=== PATIENT | male | born 1950 | race Caucasian/White ===

== ENCOUNTER → 2017-06-18 | Outpatient (CLI) | payer MEDICARE, OTHER ==
[~2017-06-18] MED LIST: BARIUM SUSPENSION 2.1% (VANILLA SILQ) 450 ML PO ONE; CATHETER FLUSH 10 ML SYR IV PRN; IOHEXOL 350 MG/ML 100 ML (OMNIPAQUE 350) VIAL IV ONE; NS 100 ML (IVPB) BAG IV ONE
--- NOTE | 2017-06-18 13:09 | Diagnostic Imaging Report ---
PROCEDURE: CT abdomen and pelvis with contrast. TECHNIQUE: Multiple contiguous axial images were obtained through the abdomen and pelvis after administration of intravenous contrast. INDICATION: Prostate cancer. FINDINGS: The lung bases are clear. There is a large fixed hiatal hernia without evidence of incarceration. There is fatty change of the liver without hepatomegaly. The gallbladder and bile ducts are normal. The pancreas and spleen are normal. The adrenal glands are normal. The kidneys show no evidence of obstruction. There are bilateral renal cysts present, the largest on the right measuring approximally 3 x 4 cm which is lobulated and very likely represents an infundibular stenosis with subsequent calyceal dilatation in the lower pole of the right kidney. There are no calculi associated with this. There is normal enhancement of the abdominal organs and vessels. Aorta shows minimal atherosclerotic disease without aneurysm. There is no para-aortic adenopathy of pathologic size. Oral contrast in the stomach and small bowel appear normal. There is a moderate amount of stool present throughout the colon from the cecum to the rectum consistent with some degree of constipation. There is diverticulosis of the sigmoid colon without evidence of diverticulitis. The bladder is not distended. The prostate is mildly enlarged with prominent median lobe. The seminal vesicles appear normal. No pelvic adenopathy is demonstrated. Bone windows show no blastic or lytic lesions. Degenerative changes noted along the lumbar spine. IMPRESSION: 1. No findings are seen to suggest metastatic prostate disease. 2. Large fixed hiatal hernia. 3. Hepatic steatosis. 4. Atherosclerotic aorta without aneurysm. 5. 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 6. Moderate stool burden consistent with constipation. Dictated by: Dictated on workstation # [id number]
--- NOTE | 2017-06-18 15:49 | Diagnostic Imaging Report ---
INDICATION: Newly diagnosed prostate carcinoma. TECHNIQUE: The patient was administered 26.4 mCi technetium 99m MDP. Anterior and posterior whole-body planar images are obtained. CORRELATION STUDY: None FINDINGS: Mild scattered areas of uptake about the spine most pronounced in the cervical spine favoring degenerative activity. The ribs and sternum appear unremarkable. Shoulder girdles with scattered areas of uptake favoring degenerative activity as well. Bony calvarium unremarkable. The pelvis as well as lower extremities are unremarkable. Exception is some degenerative type uptake suggested about the left knee and likely proximal right tibia. However, this is slightly atypical. There is also uptake about the ankles and feet right slightly greater than left. Physiologic uptake about the kidneys with excretion into the urinary bladder. IMPRESSION: 1. Multifocal areas of uptake favoring likely degenerative activity including the spine and most pronounced cervical spine as well as bilateral shoulder girdles and feet and ankles as well as knees. 2. Slight irregular uptake suggested about the proximal tibia may reflect additional degenerative activity but is somewhat atypical for degenerative activity. Correlation for symptoms in this area. 3. Otherwise, no findings to suggest presence of osseous metastatic disease at baseline bone scan. Dictated by: Dictated on workstation # [id number]
== END ==
LOC: CARD 11:46
PROVIDERS: ATTEND Urology
DX: C61 Malignant neoplasm of prostate (principal)
CPT/HCPCS: 74177; 78306

== ENCOUNTER 2017-11-18 08:58 | Outpatient (CLI) | payer MEDICARE, OTHER ==
[~2017-11-18] VITALS: Ht 167.6 cm; Wt 97.1 kg
[2017-11-18 09:13] VITALS: BP 134/90
[2017-11-18] MEDS ORDERED: PRAV40TA2 PO (10:10)
[2017-11-18] MEDS ORDERED: OMEP20TA7 PO (10:10)
[2017-11-18] MEDS ORDERED: LEVO137T2 PO (10:10)
[2017-11-18] MEDS ORDERED: NIAC500T24 PO (10:10)
[2017-11-18] MEDS ORDERED: TRAM50TA2 PO (10:10)
[2017-11-18] MEDS ORDERED: FEXO-192 PO (10:10)
[2017-11-18] MEDS ORDERED: LISI1TAB8 PO (10:10)
[2017-11-18] MEDS ORDERED: FAMO20TA3 PO (10:10)
[2017-11-18] MEDS ORDERED: SITA100T12 PO (10:10)
[2017-11-18] MEDS ORDERED: MELO15TA39 PO (10:10)
[2017-11-18] MEDS ORDERED: METF500T5 PO (10:10)
[2017-11-18] MEDS ORDERED: OMEG1CAP58 PO (10:10)
[2017-11-18] MEDS ORDERED: CYCL10TA9 PO (10:10)
[2017-12-03] MEDS ORDERED: HYOS0.1281 PO (16:37)
[2017-12-03] MEDS ORDERED: CIPR-225 PO (16:37)
[2017-12-03] MEDS ORDERED: HYDR-3870 PO (16:37)
[2017-12-03] MEDS ORDERED: PHEN-640 PO (16:37)
== END 2017-11-18 09:30 | disposition home or self-care (01) ==
LOC: PREOP 08:58
PROVIDERS: ATTEND Urology
DX: Z01.818 Encounter for other preprocedural examination (principal); C61 Malignant neoplasm of prostate
CPT/HCPCS: 87081

== ENCOUNTER 2017-12-30 09:55 | Outpatient (RCR) | payer MEDICARE, OTHER ==
[~2017-12-30 09:55] MED LIST changes: -BARIUM SUSPENSION 2.1% (VANILLA SILQ) 450 ML PO ONE; -CATHETER FLUSH 10 ML SYR IV PRN; +CIPR-225 PO; +CYCL10TA9 PO; +FAMO20TA3 PO; +FEXO-192 PO; +HYDR-3870 PO; +HYOS0.1281 PO; -IOHEXOL 350 MG/ML 100 ML (OMNIPAQUE 350) VIAL IV ONE; +LEVO137T2 PO; +LISI1TAB8 PO; +MELO15TA39 PO; +METF500T5 PO; +NIAC500T24 PO; -NS 100 ML (IVPB) BAG IV ONE; +OMEG1CAP58 PO; +OMEP20TA7 PO; +PHEN-640 PO; +PRAV40TA2 PO; +SITA100T12 PO; +TRAM50TA2 PO
== END 2018-01-03 | disposition home or self-care (01) ==
LOC: ONC 09:55
PROVIDERS: ATTEND Radiology Radiation Oncology
DX: Z51.0 Encounter for antineoplastic radiation therapy (principal); C61 Malignant neoplasm of prostate
CPT/HCPCS: 36415; 76873; 77290; 77331; 84153

== ENCOUNTER 2018-03-03 09:22 | Outpatient (RCR) | payer MEDICARE, OTHER ==
[~2018-03-03 09:22] MED LIST changes: +METF-397 PO; -METF500T5 PO
== END 2018-04-17 | disposition home or self-care (01) ==
LOC: ONC 09:22
PROVIDERS: ATTEND Radiology Radiation Oncology
DX: Z51.0 Encounter for antineoplastic radiation therapy (principal); C61 Malignant neoplasm of prostate
CPT/HCPCS: 77295; 77300; 77301; 77334; 77336; 77338; 77385

== ENCOUNTER → 2019-03-16 | Outpatient (CLI) | payer MEDICARE, OTHER ==
[~2019-03-16] MED LIST changes: -FEXO-192 PO; +FEXO-222 PO
--- NOTE | 2019-03-16 12:44 | Diagnostic Imaging Report ---
Paranasal sinuses at 10:59 a.m. INDICATION: Headache Three views were obtained. COMPARISON: There are no prior studies available for comparison. FINDINGS: The sinuses are generally clear and well aerated. There is no mucosal thickening or fluid layering to suggest active sinusitis. The osseous structures are intact. IMPRESSION: 1. There is no evidence for active sinus disease. 2. If clinical concern regarding an underlying abnormality persists, then CT of the sinuses should be considered for further study. Dictated by: Dictated on workstation # [id number]
== END ==
LOC: RAD 10:30
DX: J34.89 Other specified disorders of nose and nasal sinuses (principal); R51 Headache
CPT/HCPCS: 70220

== ENCOUNTER → 2022-06-08 | Outpatient (CLI) | payer MEDICARE, OTHER ==
[~2022-06-08] MED LIST changes: +CYCL10TA25 PO; -CYCL10TA9 PO; +LISI1TAB46 PO; -LISI1TAB8 PO; +OMEP20TA56 PO; -OMEP20TA7 PO; -TRAM50TA2 PO; +TRM50T PO
--- NOTE | 2022-06-08 13:27 | Diagnostic Imaging Report ---
EXAMINATION: Chest and left ribs three views. HISTORY: Chest pain. COMPARISON: None available. FINDINGS: There is a large hiatal hernia. Left hemidiaphragm is elevated. There is volume loss in left hemithorax. No edema or pneumonia. No pleural effusion or pneumothorax. No displaced rib fractures seen. IMPRESSION: 1. No displaced rib fracture seen. Dictated by: Dictated on workstation # [id number]
[2022-06-08 13:43] LABS: CREATINE KINASE MB 2.8 NG/ML (<6.6)
== END ==
LOC: RAD 12:40
PROVIDERS: ATTEND Nurse Practitioner Family
DX: I10 Essential (primary) hypertension (principal); M62.838 Other muscle spasm; R07.89 Other chest pain; E66.8 Other obesity; E03.9 Hypothyroidism, unspecified; E78.49 Other hyperlipidemia; E11.9 Type 2 diabetes mellitus without complications
CPT/HCPCS: 36415; 71101; 82553; 83874; 84484

== ENCOUNTER 2022-06-30 05:33 | Outpatient (CLI) | payer MEDICARE ==
[~2022-06-30] VITALS: Ht 170.2 cm; Wt 106.3 kg
[2022-07-01] MEDS ORDERED: GLIP5TAB13 PO (12:12)
[2022-07-01] MEDS ORDERED: ROSU20TA32 PO (12:12)
== END 2022-07-01 12:14 | disposition home or self-care (01) ==
LOC: PREOP 05:33
PROVIDERS: ATTEND Surgery
DX: Z01.818 Encounter for other preprocedural examination (principal)

== ENCOUNTER 2022-07-06 10:58 | Day surgery (SDC) | payer MEDICARE ==
[~2022-07-06] VITALS: Ht 170 cm; Wt 106.3 kg
[~2022-07-06 10:58] MED LIST changes: +GLIP5TAB13 PO; +ROSU20TA32 PO
[2022-07-06] MEDS ORDERED: LACTATED RINGERS 1,000 ML IV STA (11:01)
[2022-07-06] MEDS ORDERED: HURRICAINE EXT TUBE (BENZOCAINE) XX PRN (11:15)
[2022-07-06 11:20] VITALS: BP 148/99
[2022-07-06] MEDS ORDERED: PROPOFOL INJECTION 50 ML IV ONE (11:40)
--- NOTE | 2022-07-06 11:47 | Progress Note-Pre Operative ---
Pre-Operative Progress Note Date of Available H&P: Jun 23, 2022 Date H&P Reviewed: Jul 06, 2022 Time H&P Reviewed: 11:34 History & Physical: H&P Reviewed, Patient Examed, No changes noted Pre-Operative Diagnosis: Chronic Gastritis CHILANGO STRICKLAND DO Jul 06, 2022 11:47
--- NOTE | 2022-07-06 12:08 | Progress Note-Post Operative ---
Post-Operative Progess Note Surgeon (s)/Regional Operations Director (s) Surgeon CHILANGO STRICKLAND DO Regional Operations Director: none Pre-Operative Diagnosis Chronic Gastritis Post-Operative Diagnosis Gastritis Hiatal Hernia- stomach in chest Procedure & Operative Findings Date of Procedure 07/06/22 Procedure Performed/Findings EGD with bx PROCEDURE NOTE: After informed consent was obtained, the patient was brought to the endoscopy suite, placed in bed in left lateral decubitus position. He was administered IV sedation by the REVENUE ANALYST who then monitored vitals the entire time, heart rate, blood pressure and pulse ox and the scope was inserted down the mouth through the esophagus into the stomach. On the way down, noted some mild esophagitis, took a picture, pushed into the stomach, pushed past the antrum into the duodenum. Duodenum looked good. Pulled back and did a biopsy of antrum, then retroflexed the scope, saw a very large hiatal hernia with possibly the upper third of stomach above diaphragm. Took a picture of this and then pulled the scope into the GE junction, took another picture of the hiatal hernia and then did a biopsy of the GE junction. Pushed the scope back into the stomach, suctioned all the air out of the stomach. At this point pulled the scope up the esophagus and out the mouth. The patient tolerated the procedure, and he recovered in endoscopy suite. Anesthesia Type IV sedation by REVENUE ANALYST Estimated Blood Loss Estimated blood loss (mL): scant Specimens/Packing Specimens Removed antral bx GE jxn CHILANGO Rivera DO Jul 06, 2022 12:08
--- NOTE | 2022-07-06 12:10 | Endoscopy Discharge Instruct ---
Endo Procedure/Findings Findings 1.: Gastritis 2.: Hiatal Hernia Discharge Instructions - Activity: You might feel a little sleepy until tomorrow. This is due to the medicine you received to relax you. Until tomorrow, you should: NOT drive a car, operate machinery or power tools. NOT drink any alcoholic beverages. NOT make any important decisions or sign importortant papers. Do not return to work until tomorrow, unless otherwise instructed. Resume previous activities tomorrow. Diet: Start by taking liquids. If you tolerate liquids, advance to solid food. 1.: EGD in 3 years Notify Physician - If you experience excessive bleeding, unusual abdominal pain, fever, or chest pain, contact your doctor immediately. CHILANGO STRICKLAND DO Jul 06, 2022 12:10
[2022-07-06 12:11] VITALS: BP 117/70
[2022-07-06 12:16] VITALS: BP 106/70
[2022-07-06 12:20] VITALS: BP 106/70
--- NOTE | 2022-07-06 12:38 | Anesthesia-General Post-Op ---
MAC Patient Condition Mental Status/LOC: Same as Preop Cardiovascular: Satisfactory Nausea/Vomiting: Absent Respiratory: Satisfactory Pain: Controlled Complications: Absent Post Op Complications Complications None Follow Up Care/Instructions Patient Instructions None needed. Anesthesiology Discharge Order Discharge Order Patient is doing well, no complaints, stable vital signs, no apparent adverse anesthesia problems. No complications reported per nursing. ELMA HERNANDEZ CRNA Jul 06, 2022 12:38
[2022-07-06 12:45] VITALS: BP 106/70
[2022-07-06] MEDS ORDERED: fentaNYL INJ 100 MCG/2 ML AMP ONE (14:43)
== END 2022-07-06 12:50 | disposition home or self-care (01) ==
LOC: ENDO 10:58
PROVIDERS: ATTEND Surgery
DX: K29.50 Unspecified chronic gastritis without bleeding (principal); K44.9 Diaphragmatic hernia without obstruction or gangrene; K21.00 Gastro-esophageal reflux disease with esophagitis, without bleeding; E66.9 Obesity, unspecified; Z68.36 Body mass index [BMI] 36.0-36.9, adult; Z79.899 Other long term (current) drug therapy

== ENCOUNTER 2022-11-10 09:23 | Outpatient (RCR) | payer MEDICARE | END 2022-11-11 | disposition home or self-care (01) | PROVIDERS: ATTEND Family Medicine | DX: M54.16 Radiculopathy, lumbar region (principal); R26.89 Other abnormalities of gait and mobility; I10 Essential (primary) hypertension ==

== ENCOUNTER 2022-12-10 10:33 | Outpatient (RCR) | payer MEDICARE | END 2022-12-10 11:30 | disposition home or self-care (01) | PROVIDERS: ATTEND Family Medicine | DX: M54.16 Radiculopathy, lumbar region (principal); R26.89 Other abnormalities of gait and mobility ==

== ENCOUNTER → 2023-04-13 | Outpatient (RCR) | payer MEDICARE ==
[~2023-04-13] MED LIST changes: +FAMO-356 PO; -FAMO20TA3 PO; -GLIP5TAB13 PO; +GLIP5TAB23 PO; -ROSU20TA32 PO; +ROSU20TA73 PO
== END | disposition home or self-care (01) ==
PROVIDERS: ATTEND Family Medicine
DX: I95.1 Orthostatic hypotension (principal); I10 Essential (primary) hypertension

== ENCOUNTER 2023-05-11 11:13 | Outpatient (RCR) | payer MEDICARE | END 2023-05-13 | disposition home or self-care (01) | PROVIDERS: ATTEND Family Medicine | DX: R26.89 Other abnormalities of gait and mobility (principal); I95.1 Orthostatic hypotension; I10 Essential (primary) hypertension ==

== ENCOUNTER 2023-05-18 09:38 | Outpatient (RCR) | payer MEDICARE | END 2023-05-18 10:35 | disposition home or self-care (01) | PROVIDERS: ATTEND Family Medicine | DX: R26.89 Other abnormalities of gait and mobility (principal); I95.1 Orthostatic hypotension; I10 Essential (primary) hypertension ==

== ENCOUNTER → 2023-05-21 | Outpatient (CLI) | payer MEDICARE ==
--- NOTE | 2023-05-21 13:02 | Diagnostic Imaging Report ---
PROCEDURE: US Hepatic (Liver). TECHNIQUE: Multiple real-time grayscale images were obtained over the right upper quadrant in various projections. INDICATION: Elevated liver function tests. Liver is normal in size at 14 cm. There is increased echogenicity consistent with hepatic steatosis. No liver mass is identified. The portal vein is patent and shows normal direction of flow. Gallbladder is without stones or sludge. There is no wall thickening or biliary ductal dilatation. The pancreas is unremarkable. The aorta is nonaneurysmal. IVC is patent. The right kidney measures 13.7 cm. There are multiple renal cysts, the largest approximately 3.4 x 2.7 cm. There is no hydronephrosis. There is no ascites. IMPRESSION: 1. Hepatic steatosis. 2. No evidence of cholelithiasis or acute cholecystitis. 2. Right renal cysts. Dictated by: Dictated on workstation # [id number]
== END ==
LOC: RAD 08:44
PROVIDERS: ATTEND Family Medicine
DX: K76.0 Fatty (change of) liver, not elsewhere classified (principal); N28.1 Cyst of kidney, acquired; R79.89 Other specified abnormal findings of blood chemistry
CPT/HCPCS: 76705